=== PATIENT | female | born 1985 | race Caucasian/White ===

== ENCOUNTER 2024-08-18 11:39 | Day surgery (SDC) | payer OTHER, SELFPAY ==
[2024-08-14 16:17] VITALS: BMI 28.1
--- NOTE | 2024-08-15 10:57 | HO.ANESPROP2 ---
Documented by User: Meagan Grissom NP 08/15/24 10:57 HPI - Anesthesia Eval Consult details Narrative: 39yo F for Upper Endoscopy with Balloon Dilitation [facility] Surgical History Surgical History (Updated 08/14/24 @ 16:15 by Rosibel Ray, RN) Hx of adenoidectomy Social History Social History Are you a primary skin care instructor to a significant other at home: No Patient Tobacco Use Status: Never used Tobacco Use of substances other than those prescribed or required for medical reasons: No Have you been hit, kicked, punched, or otherwise hurt by someone within the past year? If so, by whom?: No Are you DNR?: No Advance Directives: No Advance Directives Information Provided: Yes Recently lost weight without trying: No Nutrition Risks: No Nutritional Risk Patient : No Meds Allergies Allergy/AdvReac Type Severity Reaction Status Date / Time Sulfa (Sulfonamide Allergy Unknown Verified 08/18/24 12:45 Antibiotics) Home Medications ?Medication ?Instructions ?Recorded ?Confirmed ?Last Taken ?Type M.V.I. Adult 08/18/24 Unknown History mecobalamin (vitamin B12) 1,000 1,000 mcg PO 08/18/24 Unknown History mcg chewable tablet (B12 Active) Exam Height,Weight and Vital Signs: Height 5 ft 5 in Weight 76.657 kg Assessment and Plan Assessment Anesthesia Assessment: Chart Reviewed Documented by User: Barrett Betts MD 08/18/24 13:16 [facility] Family History Family history of problems with anesthesia: No Surgical History Surgical History (Updated 08/14/24 @ 16:15 by Rosibel Ray RN) Hx of adenoidectomy History of Problems with Anesthesia: No Social History Social History Are you a primary skin care instructor to a significant other at home: No Patient Tobacco Use Status: Never used Tobacco Use of substances other than those prescribed or required for medical reasons: No Have you been hit, kicked, punched, or otherwise hurt by someone within the past year? If so, by whom?: No Are you DNR?: No Advance Directives: No Advance Directives Information Provided: Yes Recently lost weight without trying: No Nutrition Risks: No Nutritional Risk Patient : No Meds Allergies Allergy/AdvReac Type Severity Reaction Status Date / Time Sulfa (Sulfonamide Allergy Unknown Verified 08/18/24 12:45 Antibiotics) Home Medications ?Medication ?Instructions ?Recorded ?Confirmed ?Last Taken ?Type M.V.I. Adult 08/18/24 Unknown History mecobalamin (vitamin B12) 1,000 1,000 mcg PO 08/18/24 Unknown History mcg chewable tablet (B12 Active) Exam Airway Mallampati Class: III TM Dist: >3cm Neck ROM: Full Assessment and Plan Assessment Anesthesia Assessment: Anesthesia Plan Discussed Final Anesthetic Review Family History of Problems with Anesthesia: No History of Problems with Anesthesia: No NPO: Yes ASA Class: II Final Preanesthetic Review: No Changes in Pt Med Stat, Meds/Allgs Chart Reviewed, Consent Obtained/Reviewed, Anes Risks/Benef Reviewed and DNR Form (If Appl.) Patient Risk: Low Procedure Risk: Low Anesthetic Plan Anesthetic Plan: TIVA Disposition: Standard PACU
[2024-08-18 12:29] LABS: UPreg QC Valid YES; Urine Pregnancy NEGATIVE (NEGATIVE)
[2024-08-18 12:32] VITALS: BP 135/85; PULSE 72; RESP 15; TEMP 36.9; O2SAT 98; BMI 28.6
[2024-08-18] MEDS: Lactated Ringers 1,000 ML 100 ML IVCONT (12:44)
[2024-08-18 13:44] VITALS: BP 122/75; PULSE 86; RESP 16; TEMP 37.1; O2SAT 98
--- NOTE | 2024-08-18 13:47 | PM.OP ---
Brief Operative Note Date of Service: 08/18/24 Pre-op diagnosis: Dysphagia, abnormal Barium swallow Post-op diagnosis: other (Esophageal stricture, Hiatal hernia) Procedure: EGD with balloon dilation from a 15mm to a 16.5mm to an 18mm balloon. Surgeon: Juan Alberto Leslie MD Anesthesia: MAC Was an Risk Management Consultant used for this Procedure?: No Estimated blood loss (mL): 2.0 Pathology: none sent Condition: stable Disposition: PACU
[2024-08-18 13:59] VITALS: BP 131/75; PULSE 68; RESP 16; TEMP 36.6; O2SAT 98
--- NOTE | 2024-08-18 14:16 | OP_ITS ---
DATE OF SERVICE: 08/18/2024 SURGEON: Juan Alberto Leslie MD INDICATIONS: The patient presents for evaluation of dysphagia and abnormal barium swallow. Full consent has been obtained from her for this, including risks of bleeding and perforation. PREOPERATIVE DIAGNOSIS: POSTOPERATIVE DIAGNOSIS: PROCEDURE PERFORMED: Esophagogastroduodenoscopy with balloon dilation of distal esophageal stricture. ESTIMATED BLOOD LOSS: COMPLICATIONS: ANESTHESIA: Monitored anesthesia care. ASSISTANTS: SPECIMENS: PREOPERATIVE DIAGNOSES: Dysphagia and abnormal barium swallow. POSTOPERATIVE DIAGNOSES: Dysphagia and abnormal barium swallow, distal esophageal stricture, hiatal hernia. DESCRIPTION OF PROCEDURE: The patient was placed in the left lateral decubitus position. The Olympus video gastroscope was passed in the posterior oropharynx and upper esophagus under direct vision. The scope was passed slowly into the distal esophagus. The gastroesophageal junction appeared at 33 cm. This was consistent with a fibrotic nonobstructing stricture, but without any esophagitis, ulceration, nor mass. The scope easily passed this into a hiatal hernia. The hiatal hernia was small. The scope was advanced to the pylorus, and the duodenum was cannulated to the descending portion. The duodenum including the bulb appeared normal without mass or ulceration. The scope was withdrawn back in the stomach. The gastric antrum and body appeared normal with good peristalsis. The scope was retroflexed visualizing the proximal stomach carefully, which appeared normal, without any sign of mass or ulceration. The scope was straightened and withdrawn back to the esophagus. Given her symptomatology and these findings, as well as the abnormal barium swallow, I dilated the esophageal stricture with a [employer] incremental balloon from 15 mm to 16.5 mm to 18 mm at the recommended pressure for between 30 and 60 seconds each. Post dilation, the stricture appeared to be disrupted with heme noted. Therefore no further dilation was performed. The scope was withdrawn through the remainder of the esophagus, which appeared normal. There was no evidence of any proximal esophageal rings. The scope was withdrawn from the patient. She tolerated the procedure well and was returned to the recovery area in stable condition. IMPRESSION: 1. Distal esophageal stricture, status post balloon dilation. 2. Hiatal hernia. PLAN: Given today's findings, I shall put her on omeprazole 20 mg daily. I do suspect she may be having some silent reflux in relation to the hiatal hernia that is contributing to the formation of the stricture. I will plan to see her later in the year for followup. I have instructed her to call me before that if she has any persistent or recurrence of the dysphagia such that we can repeat the endoscopy with a larger balloon. However, if things are stable, I will plan to see her later in the year in the office. She was advised not to use any aspirin and NSAIDs for at least a week. She was advised to continue to eat somewhat carefully. This has been discussed with her mother. MD KATARINA Santana/EILEEN / [id number]
== END 2024-08-18 14:18 | disposition home or self-care (01) ==
PROVIDERS: Nurse Practitioner; PCP Family Medicine; Visit Provider Internal Medicine
PROC: (CPT 43249; principal; 2024-08-18 12:00)
DX: K22.2 Esophageal obstruction (principal); R13.10 Dysphagia, unspecified; K44.9 Diaphragmatic hernia without obstruction or gangrene; Z90.89 Acquired absence of other organs; Z88.2 Allergy status to sulfonamides
CPT/HCPCS: 43249; 81025; C1726; J2003; J2704